=== PATIENT | female | born 2005 | race Hispanic/Latino ===

== ENCOUNTER 2025-07-01 16:28 | Outpatient (CLI) | payer OTHER, SELFPAY ==
--- OUTSIDE RECORDS SUMMARY | 2025-07-01 16:40 | XMS_ITS | Clinical Summary ---
Author Organization [facility] Address [address] [place] [address] Care Team Providers Care Varnishing Machine Operator Name Role Phone Viviana Lundy NP Primary Care Provider [phone] Source Comments PLEASE NOTE, if this patient is a minor, it may be UNLAWFUL to discuss sensitive information that is contained in these records (such as FAMILY PLANNING, MENTAL HEALTH or SUBSTANCE ABUSE) with the minor patient's parent or other person without the patient's specific authorization.[facility] Allergies No known active allergies Medications No known medications Active Problems Problem Noted Date Diagnosed Date Nexplanon insertion 05/09/2024 Hx of seizures 01/19/2022 Overweight 01/19/2022 Peds BMI%, 85% to < 95% 01/19/2022 Screening for iron deficiency anemia 12/25/2019 Encounter for immunization 12/25/2019 Routine health exam with abnormal findings 29+ d ays 12/25/2019 Vision impairment, both eyes , impairment level not further specified 08/20/2018 Disability affecting daily living 08/20/2018 Epilepsy and recurrent seizures 12/15/2014 VISUAL IMPAIRMENT 04/18/2013 Immunizations Immunization Administration Dates Next Due DTAP (Infanrix) 05/17/2007, 5,06/22/2004, 4,2003 HEP A, UNSPECIFIED 03/30/2011,06/29/2009 HPV 9 (Gardasil) 04/09/2017 HPV, QUADRIVALENT 01/25/2015 Hep B, Unspecified 06/22/2004,01/05/2004, 003 Hib, unspecified 06/22/2004,01/05/2004, 3 INFLUENZA, UNSPECIFIED 10/12/2006 IPV (IPOL) 02/08/2008, 4,01/05/2004, 3 MENINGOCOCCAL MCV4P (MENACTRA) 12/25/2019,2014 MMR (MMR II/Priorix) 02/16/2009,06/22/2004 TDAP 01/25/2015 Varicella (Varivax), Live Vaccine 01/25/2015 Family History Medical History Relation Name Comments No Known Problems Father No Known Problems Mother Relation Name Status Comments Father Mother Social History Tobacco Use Types Packs/Day Years Used Date Smoking Tobacco: Never Smokeless Tobacco: Never Tobacco Cessation:Counseling Given: Not Answered Alcohol Use Standard Drinks/Week Comments Yes 0 (1 standard drink = 0.6 oz pur e alcohol) social Social Connections Answer Date Recorded Connectedness 0 06/23/2024 Financial Resource Strain Answer Date R ecorded How hard is it for you to pa y for the very basics like food, housing, heating, medical care, and medications? 1 05/30 Stress Answer Date Recorded Stress 0 07/21/2022 Physical Activity Answer Date Recorded Physical Activity 0 07/21/2022 Food Insecurity Answer Date Recorded Within the past 12 months, y ou worried that your food would run out before you got money to buy more. 1 05/30/2024 Transportation Needs Answer Date Record ed In the past 12 months, has l ack of transportation kept you from medical appointments, meetings, work or from getting things needed for daily living? 1 05/30/2024 Housing Stability Answer Date Recorded What is your living situation today? 1 05/30/2024 Safety and Environment Answer Date Venu rded Safety 0 07/21/2022 Utilities Answer Date Recorded Utilities 0 07/21/2022 Employment Answer Date Recorded Employment 0 07/21/2022 Comments Unknown Sex and Gender Information Value Date Recorded Sex Assigned at Female 01/30/2023 12:47 PM PDT Legal Sex Female 10:20 AM PDT Gender Identity Female 01/30/2023 12:47 PM PDT Sexual Orientation Straight 01/30/2023 12 :47 PM PDT Last Filed Vital Signs Vital Sign Reading Time Taken Comments Blood Pressure 104/62 05/30/2024 10:40 AM CDT Pulse 87 05/30/2024 10:40 AM CDT Temperature 36.9 C (98.5 F) 05/30/2024 10:40 AM CDT Respiratory Rate 18 05/30/2024 10:40 AM CDT Oxygen Saturation 99% 05/30/2024 10:40 AM CDT Inhaled Oxygen Concentration - - Weight 79.8 kg (176 lb) 05/30/2024 10:40 AM CDT Height 154.9 cm (5' 1) 05/30/2024 10:40 AM CDT Body Mass Index 33.25 05/30/2024 10:40 AM CDT Plan of Treatment Health Maintenance Due Date Last Done Comments Anxiety Screening 2003 HPV Screening 2003 Hepatitis C Screening 2003 Pap + HPV 2003 Tobacco Screening 2003 Imm-Varicella (2 of 2 - 2-do se childhood series) 04/19/2015 01/25/2015 Chlamydia Screening 2016 Gonorrhea Screening 2016 HIV Screening 2018 Relationship Safety Screening/Counseling 2018 Cervical Cancer Screening 2024 Pap Smear 2024 Alcohol and Drug Screen 10/15/2024 05/21/2024 Depression Annual Screen 10/15/2024 05/30/2024 Imm-DTaP/Tdap/Td (7 - Td or Tdap) 01/25/2025 01/25/2015, 05/17/2007, 05/23/2005, Additional history exists [id number] ( season) 2025 021, 01/30/2021 Imm-Influenza (#1) 2025 10/12/2006 Hypertension Screening (#1) 05/30/2027 Imm-Hepatitis B Completed 06/22/2004, 12/14, 2003 Imm-HPV Completed 04/09/2017, 01/25/2015 Cervical Ablation/Cold-Knife Conization Discontinued Cervical Cryotherapy Discontinued Colposcopy Discontinued Endometrial Biopsy Discontinued Excision/Leep Discontinued HPV Genotyping Discontinued Vaginal Pap Discontinued Vulvoscopy Discontinued Goals Goal Patient Goal Type Associated Problems Recent Progress Patient-Stated? Author PCSN: DIE STORAGE CLERK Care General Yes Jeanna Corcoran Md, MD Carolyn Note: Hortencia will have routine DIE STORAGE CLERK exams and testing. To follow up in 4 wks for Nexplanon check. PCSN: DIE STORAGE CLERK Care General Yes Jeanna Corcoran Md, MD Carolyn Note: Hortencia will have routine DIE STORAGE CLERK exams and testing. Insurance [employer] Care Teams Varnishing Machine Operator Relationship Specialty Start Date End Date Viviana Lundy NP [address] [place] [address] PCP - General 08/11/22
[2025-07-01 17:27] LABS: Beta HCG Quantitative < 2.39 mIU/ML
== END 2025-07-01 16:29 | disposition home or self-care (01) ==
LOC: ANHLAB 16:32
PROVIDERS: Visit Provider Student in an Organized Health Care Education/Training Program
DX: N92.6 Irregular menstruation, unspecified (principal)
CPT/HCPCS: 36415; 84702